=== PATIENT | male | born 1960 | race Caucasian/White ===

== ENCOUNTER 2018-09-06 08:11 | Day surgery (SDC) | payer OTHER ==
[2018-08-29 13:32] VITALS: BMI 34.2
[2018-09-06] MEDS ORDERED: PROPOFOL 20 ML ONE ×2 (08:21)
[2018-09-06] MEDS ORDERED: LIDOCAINE HCL/PF 2% SDV 5ML VIAL ONE (08:21)
[2018-09-06 09:30] VITALS: PULSE 64; TEMP 97.8
[2018-09-06 10:08] VITALS: BP 116/60
== END 2018-09-06 10:10 | disposition home or self-care (01) ==
LOC: FASU-ENDO 08:11
PROVIDERS: ATTEND Internal Medicine Gastroenterology
PROC: 0DJD8ZZ Inspection of Lower Intestinal Tract, Via Natural or Artificial Opening Endoscopic (ICD-10-PCS; principal; 2018-09-06 08:51)
DX: Z86.010 Personal history of colon polyps (principal); K57.30 Diverticulosis of large intestine without perforation or abscess without bleeding